=== PATIENT | male | born 1985 | race African-American/Black ===

== ENCOUNTER 2020-04-12 14:20 | Emergency (ER) | payer SELFPAY ==
[~2020-04-12] VITALS: Ht 175.3 cm; Wt 70.0 kg
[2020-04-12] MEDS ORDERED: METOCLOPRAMIDE HCL 10MG/2ML VIAL IV ONE (14:45)
[2020-04-12] MEDS ORDERED: IBUPROFEN 800MG TABLET PO ONE (14:45)
[2020-04-12] MEDS ORDERED: ACETAMINOPHEN 325MG TABLET PO ONE (14:45)
[2020-04-12] MEDS ORDERED: METOCLOPRAMIDE HCL 10MG TABLET PO ONE (15:00)
[2020-04-12] MEDS ORDERED: IBUP-2030 MT (15:58)
[2020-04-12] MEDS ORDERED: METO-293 MT (15:58)
[2020-04-12 16:20] VITALS: BP 152/90
== END 2020-04-12 16:25 | disposition home or self-care (01) ==
LOC: ER 14:20
DX: R51.9 Headache, unspecified (principal); M79.631 Pain in right forearm; M54.2 Cervicalgia; V43.52XA Car driver injured in collision with other type car in traffic accident, initial encounter; Y93.89 Activity, other specified; Y92.488 Other paved roadways as the place of occurrence of the external cause
CPT/HCPCS: 73090; 99284; J8597; J2765